=== PATIENT | male | born 1975 | race Hispanic/Latino ===

== ENCOUNTER 2017-01-28 19:29 | Emergency (ER) | payer OTHER ==
[~2017-01-28] VITALS: Ht 167.6 cm; Wt 70.5 kg
[2017-01-28 19:52] VITALS: BP 117/72; PULSE 104; RESP 16; O2SAT 97
--- NOTE | 2017-01-28 21:40 | ED.REPORT ---
HPI-Abd Pain M 40 and Over Date of Service January 28, 2017 ED Provider: Wiley Raines MD Pt is a 41 year old male presenting to the ED complaining of LLQ abdominal pain onset today at 0200. Associated symptoms include nausea, vomiting (5-6 episodes) , diarrhea, chills, muscle cramping in his neck, headache, feeling very thirsty , subjective fever. He last vomited at 1800 tonight, and reports that he last urinated 1 hour ago. Nursing Notes Stated Complaint: ABDOMINAL PAIN, VOMITING Chief Complaint: Male Abdominal Pain Nursing Notes Reviewed: Yes Allergies: Coded Allergies: No Known Allergies (Unverified , 01/28/17) General Time Seen by MD: 21:35 Chief Complaint Abdominal pain Hx Obtained From: Patient Arrived By: Walk-in Sudden in Onset?: Yes Onset Occurred: 13 - 16 hours ago Symptom Duration: Since onset Progression since Onset: Constant Location: : LLQ Quality: Painful Severity: Current: Moderate Severity: Maximum: Moderate Recent Healthcare: No recent doctor visit, No recent hospitalization Similar Sx Previous: No Past Medical History Past Medical History denies Past Surgical History denies Smoking History Unknown if Ever Smoker Ambulatory Status Independent Review of Systems Constitutional: Reports: Chills, Fever GI: Reports: Abdominal pain, Diarrhea, Nausea, Vomiting Complete sys rev & neg: except as marked. Neurologic: Reports: Headache Physical Exam Initial Vital Signs Vital Signs (First) Date Time Temp Pulse Resp B/P Pulse Ox O2 Delivery O2 Flow Rate FiO2 01/28/17 19:52 37.9 104 16 117/72 97 Room Air Initial VS: Reviewed, Vital signs abnormal Head / Eyes: Atraumatic, Normocephalic, PERRL ENT: Mucous membranes moist, Conjunctiva normal, No scleral icterus Extremities: Vascular intact, Neuro intact, No swelling, No tenderness Skin: Warm, Dry, No cyanosis Neurologic: Alert, Oriented, Nonfocal Psychiatric: Mood/affect normal, Behavior normal, Normal thought content General/Constitutional: Awake, Alert, No acute distress, Well appearing Respiratory / Chest: No respiratory distress Abdomen: Soft, No guarding, No rebound Tenderness/Guarding/Rebound: Positive: Tender LLQ... (Moderate) ENT: Atraumatic, Airway patent Mouth: Positive: Mucous membranes dry Interpretation & Diagnostics Lab Results Interpretation Result Diagram: 01/28/17222301/28/172223 Test 01/28/17 20:43 01/28/17 22:24 Hold Urine Received (Received) White Blood Count 10.2th/mm3 (3.8-10.1) Red Blood Count 4.77mil/mm3 (4.40-5.80) Hemoglobin 14.9g/dL (13.8-17.2) Hematocrit 44.9% (41.0-50.0) Mean Corpuscular Volume 94.1fL (81-100) Mean Corpuscular Hemoglobin 31.2pg (27.0-35.0) Mean Corpuscular Hemoglobin Concent 33.2% (32.0-37.0) Red Cell Distribution Width 12.1% (12.3-15.4) Platelet Count 345bil/L (150-400) Neutrophils (%) (Auto) 79.7% (40-74) Lymphocytes (%) (Auto) 12.2% (14-46) Monocytes (%) (Auto) 6.8% (4-12) Eosinophils (%) (Auto) 0.8% (0-5) Basophils (%) (Auto) 0.3% (0-3) Band Neutrophils % 0% (1-5) Sodium Level 141mEq/L (134-144) Potassium Level 4.6mEq/L (3.5-5.2) Chloride Level 102mEq/L (97-108) Carbon Dioxide Level 24mmol/L (18-29) Blood Urea Nitrogen 10mg/dL (6-24) Creatinine 0.93mg/dL (0.76-1.27) Estimat Glomerular Filtration Rate 95mL/min (>59) Glucose Level 110mg/dL (60-99) Calcium Level 8.9mg/dL (8.5-10.1) Magnesium Level 1.9mg/dL (1.6-2.6) Total Bilirubin 1.1mg/dL (0.0-1.2) Aspartate Amino Transf (AST/SGOT) 22U/L (0-50) Alanine Aminotransferase (ALT/SGPT) 30U/L (0-44) Alkaline Phosphatase 103U/L (25-150) Total Protein 8.3g/dL (6.4-8.4) Albumin 4.6g/dL (3.4-5.0) Lipase 36U/L (13-60) Hold Haji Top Tube Received (Received) Lab values outside NL range: no clinical significance. Re-Eval/Medical Decision Med Decision/Clinical Course Uncomplicated viral gastroenteritis without significant lab abnormality and without evidence of more serious or surgical illness. Time of Eval: 23:19 Patient Status: Condition improved Re-Evaluation/Progress Note: Discussed plan for discharge. Pt understands and agrees. Counseled Regarding: Diagnosis, Lab results, Need for follow-up, When/why to return to ED Discharge & Departure Primary Impression: Vomiting Vomiting type: unspecified Vomiting Intractability: non-intractable Nausea presence: with nausea Qualified Code: R11.2 - Nausea with vomiting, unspecified Disposition: Home Vital Signs - All Vital Signs Date Time Temp Pulse Resp B/P Pulse Ox O2 Delivery O2 Flow Rate FiO2 01/28/17 23:36 66 16 111/73 96 Room Air 01/28/17 22:39 38.6 102 16 129/80 95 Room Air 01/28/17 19:52 37.9 104 16 117/72 97 Room Air )( All Prior VS Reviewed: Yes Condition: Improved Patient Instructions: Gastroenteritis (ED) Additional Instructions: There are no significant lab abnormalities. Your symptoms appear to be from a viral gastroenteritis. Return to the emergency room if you worsen. Contact your regular doctor if your symptoms persist for more than 5 days. Ondansetron (Zofran) 4 mg dissolved orally 4 times a day as needed for nausea and vomiting, #4 dispensed. Referrals: [facility] (PCP) [facility] Attestation Portions of this note were transcribed by Michelle Lay. I, Dr. Raines personally performed the history, physical exam and medical decision-making; I reviewed and confirmed the accuracy of the information in the transcribed note. Signed by: Chacorta Hartman, 01/28/2017 at 2326. copies to: [facility] Wiley Raines MD January 28, 2017 21:40 MICHELLE LAY January 28, 2017 22:02
[2017-01-28 22:39] VITALS: BP 129/80; PULSE 102; RESP 16; O2SAT 95
[2017-01-28 22:47] LABS: MONOCYTES % (AUTO) 6.8 % (4-12); Mean Corpuscular Hemoglobin 31.2 pg (27.0-35.0); Mean Corpuscular Volume 94.1 fL (81-100); NEUTROPHILS % (AUTO) 79.7 % (40-74); Platelet Count 345 bil/L (150-400)
[2017-01-28 22:48] LABS: BASOPHILS % (AUTO) 0.3 % (0-3); EOSINOPHILS % (AUTO) 0.8 % (0-5)
[2017-01-28 23:07] LABS: Magnesium 1.9 mg/dL (1.6-2.6)
[2017-01-28] MEDS ORDERED: _Ondansetron ODT 4 mg Tablet PO PRN (23:25)
[2017-01-28 23:36] VITALS: BP 111/73; PULSE 66; RESP 16; O2SAT 96
== END 2017-01-28 23:34 | disposition home or self-care (01) ==
LOC: SED 19:29
DX: R11.2 Nausea with vomiting, unspecified (principal); R10.32 Left lower quadrant pain; R19.7 Diarrhea, unspecified; R68.83 Chills (without fever); R51 Headache; A08.4 Viral intestinal infection, unspecified